=== PATIENT | male | born 1960 | race Caucasian/White ===

== ENCOUNTER 2024-08-05 08:50 | Emergency (ER) | payer OTHER, SELFPAY ==
[2024-08-05 08:55] VITALS: BP 139/90
[2024-08-05 10:10] VITALS: BP 146/110
[2024-08-05 10:15] VITALS: BMI 27.2
--- NOTE | 2024-08-05 10:20 | ED.GENMED ---
History of Present Illness
General
Chief Complaint: Heart Rate Problem
Source: patient
Exam Limitations: none
Time Seen by Provider: 08/05/24 10:09
History of Present Illness
History of Present Illness:
See MDM
Past History
Past History
ED Past Medical History: None
ED Past Surgical History: None
Social History
Tobacco: Smoker
Phy Exam
Physical Exam
Physical Exam:
See MDM
Scores
[id number] Score for Afib Stroke Risk
Age in Years (65=0, 65-74=1, >/=75=2): <65
Sex (Female=+1): Male
Congestive Heart Failure History (Yes=+1): No
Hypertension History (Yes=+1): Yes
Stroke/TIA/Thromboembolism History (Yes=+2): No
Vascular Disease History (Yes=+1): No
Diabetes Mellitus (Yes=+1): No
Score: 1
Anticoagulation Recommendations: Consider anticoagulation (as validated in nonvalvular fib)
Course
Orders/Labs/Results
Orders:
Orders
08/05/24 08:51
EKG [Electrocardiogram (*1)] Urgent
Reason for Study: Palpitations
EKG- Treatment ONCE
08/05/24 10:22
Complete Blood Count/With Diff Urgent
Comprehensive Metabolic Panel Urgent
Magnesium Urgent
TSH Reflex To Free T4 Urgent
08/05/24 10:43
Amlodipine [Norvasc] 10 mg PO ONCE ONE
Abnormal Lab Results
08/05/24
10:22
Absolute Monos (auto) 0.8 H 10^3/uL
(0.1-0.6)
Monocytes % 10.0 H %
(1.7-9.3)
Chloride 111 H mmol/L
(98-107)
Magnesium 2.4 H mg/dl
(1.6-2.3)
08/05/24 10:22
08/05/24 10:22
Vital Signs
Initial and Last Documented VS:
Initial Vital Signs
Temp Pulse Resp BP Pulse Ox
97.6 F 65 18 139/90 99
08/05/24 08:55 08/05/24 08:55 08/05/24 08:55 08/05/24 08:55 08/05/24 08:55
Last Documented Vital Signs
Temp Pulse Resp BP Pulse Ox
97.6 F 48 11 130/96 99
08/05/24 08:55 08/05/24 12:00 08/05/24 12:00 08/05/24 12:00 08/05/24 12:00
MDM/Problems Addressed
Differential Diagnosis Includes:
HPI and MDM Narrative:
63-year-old male presenting from PCP office for evaluation of palpitations and concern for new onset A-fib. Over the past several weeks, patient noted intermittent episodes where his heart rate was fast. He initially equated this to stress but he
has a home monitor device showing A-fib. Patient denies prior history of A-fib. On exam, he is well-appearing and nontoxic. Patient is sinus rhythm. On the monitor, heart rate goes as low as 51 bpm. 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
walker. He denies any chest pain or shortness of breath with exertion. Given that he has no exertional component, I have low suspicion for ACS. He has no ischemic changes on his EKG either. On the monitor, blood pressure 140s/90s. He denies
prior history of high blood pressure. Regardless, case curb sided with cardiology. We discussed treating him as [id number] score of 1. Will discuss risk versus benefit of Eliquis with patient. In regards to his baseline bradycardia, will avoid
beta-blockers. Will start amlodipine. Cardiology suggested propranolol if symptoms are persistent
Physical exam
General: Well appearing and non-toxic
HEENT: protecting airway
Neck: appears supple
CV: No evidence of cyanosis. Regular rate and rhythm
Resp: No accessory muscle use
Abd: Non-distended
Extremities: No deformities
Neuro: alert
Psych: Normal affect
Skin: Intact
Problems Addressed including Acute and Chronic Conditions affecting care:
1. New onset A-fib
Acuity: acute
Prognosis: stable
Details: Given baseline bradycardia, will start amlodipine
Updates
Case discussed with cardiology. The decision of Eliquis was discussed with patient. Given that he is still low risk, he will wait on starting Eliquis until speaking to cardiology in the outpatient setting. Patient understands risks of clot and
stroke
Blood work without clinically significant abnormalities. Patient feels comfortable going home and understands return precautions
Differential Diagnosis (but not limited to):
Testing considered:
Drug therapy (if applicable): OTC meds, please see d/c instruction regarding Rx drugs
Amount and/or Complexity of Data Reviewed
Clinical info obtained from: Patient
External data reviewed: N/A
Labs I independently reviewed (but not limited to): TSH normal
Radiology: N/A
Pulse Ox: not hypoxic
EKG independently reviewed: Sinus bradycardia
Tail Sawyer: Sinus rhythm, normal axis, right bundle branch block, no STEMI
Critical Care: N/A
Risk of Complication:
Social Determinants of health: Good social support
Discussed with other providers: General Assembler
Escalation of Care includes Admit/Obs: After being observed in the Emergency Department, pt stable for discharge.
Occasional wrong word or 'sound a like' substitutions may have occurred due to the inherent limitations of voice recognition software. Read the chart carefully and recognize, using context, where substitutions have occurred.
*Critical Care Note
Total Time (30-74mins, 75-104mins- exclusive of procedures): Not Applicable
ED Attending Note
-
Portions of this chart may have been created with voice recognition software.� Occasional wrong word or��sound alike� substitutions may have occurred due to the inherent limitations of voice recognition software.
Discharge Plan
Departure
Patient Disposition: Home (Routine Discharge)
Date of Disposition: 08/05/24
Time of Disposition: 12:32
Patient with high blood pressure during this ER visit?: No
Discharge Problem:
New onset a-fib
Instructions: Atrial Fibrillation (DC)
Prescriptions:
New
amlodipine 10 mg tablet
10 mg PO DAILY Qty: 30 0RF
No Action
Zithromax Tri-Anton
250 mg PO DAILY
Patient Comments:
day 3 of z-pac
cefuroxime axetil 500 MG tablet
500 mg PO BID Qty: 14 0RF
Referrals:
Jerry Sanz DO [Family Provider, Internal Medicine]
Pasquale Camargo MD [Active, Cardiology]
Activity Restrictions/Additional Instructions:
Please return for any worsening symptoms.
You may return at any time if you have further concerns.
Please follow up with your doctor at the first available appointment, preferably this week.
Please make an appointment to see the supreme court judge. As we discussed, we are starting you on a blood pressure medicine called amlodipine. This will have some effect on your heart rate as well. The supreme court judge suggested that your primary care
doctor placed you on a different medicine called propranolol if your symptoms are persistent or worse. We have to avoid certain medications that could lower your heart rate even more. Your resting heart rate is already on the low side.
Thank you for choosing [facility].
Interventions
Interventions:
*Risk Screen - Suicide Last Done: 08/05/24 08:55
*General Assessment Last Done: 08/05/24 10:15
*Neglect/Abuse Screening Last Done: 08/05/24 08:55
*ED- Fall Risk Assessment Last Done: 08/05/24 10:15
*ED COVID-19 Vaccine History Last Done: 08/05/24 08:55
ED- Cardiac Assessment Last Done: 08/05/24 10:15
ED- Pulmonary Assessment Last Done: 08/05/24 10:15
Discharge Date and Time
Print Language: FRENCH
[2024-08-05 10:37] LABS: % Basophils 0.8 % (0-2); % Eosinophils 1.5 % (0-6); % Immature Granulocytes 0.3 % (0-0.5); % Neutrophils 58.4 % (42.2-75.2); Absolute Basophils 0.1 10^3/uL (0-0.2); Absolute Eosinophils 0.1 10^3/uL (0-0.7); Absolute Lymphocytes 2.2 10^3/uL (1.2-3.4); Absolute Monocytes 0.8 10^3/uL (0.1-0.6); Absolute Neutrophils 4.4 10^3/uL (1.4-6.5); Hematocrit 44.3 % (39.0-52.0); Hemoglobin 15.3 g/dL (13.0-18.0); Mean Corp Hgb Conc. 34.5 g/dL (33.0-37.0); Mean Corpuscular Hgb 29.7 pg (27.0-31.0); Mean Corpuscular Volume 85.9 fL (80.0-94.0); Mean Platelet Volume 10.4 fL (7.4-10.4); Nucleated Red Blood Cells % 0 % (-); Platelet Count 238 10^3/uL (130-400); Red Blood Cell Count 5.16 10^6/uL (4.70-6.10); Red Cell Dist. Width 14.4 % (11.5-14.5); White Blood Cell Count 7.5 10^3/uL (4.8-10.8)
[2024-08-05 10:52] LABS: ALT (SGPT) 15 U/L (0-50); AST (SGOT) 20 U/L (17-59); Albumin 4.6 g/dl (3.5-5.0); Alkaline Phosphatase 55 U/L (38-126); Blood Urea Nitrogen 17 mg/dl (9-20); Calcium 9.6 mg/dl (8.4-10.2); Carbon Dioxide 24 mmol/L (22-30); Chloride 111 mmol/L (98-107); Estimated Creatinine Clearance 83 ml/min; Glucose 88 mg/dl (70-99); Magnesium 2.4 mg/dl (1.6-2.3); Potassium 4.8 mmol/L (3.5-5.1); Sodium 142 mmol/L (135-145); Total Bilirubin 0.7 mg/dl (0.2-1.3); Total Protein 7.2 g/dl (6.3-8.2); eGFR > 60.00
[2024-08-05] MEDS: NORVASC 10 MG PO (10:56)
[2024-08-05 11:00] VITALS: BP 133/95
[2024-08-05 11:20] LABS: TSH Reflex To Free T4 1.36 uIU/ml (0.47-4.68)
[2024-08-05 12:00] VITALS: BP 130/96
== END 2024-08-05 12:47 | disposition home or self-care (01) ==
LOC: EMR 08:50
PROVIDERS: EMERGENCY PHYSICIAN Student in an Organized Health Care Education/Training Program; FAMILY PHYSICIAN Internal Medicine
DX: I48.91 Unspecified atrial fibrillation (principal); F17.200 Nicotine dependence, unspecified, uncomplicated; R00.1 Bradycardia, unspecified
CPT/HCPCS: 99284; 80053; 83735; 84443; 85025; 93005

== ENCOUNTER → 2025-01-12 08:18 | Outpatient (REF) | payer OTHER, SELFPAY | LOC: RCS 08:18 | PROVIDERS: ATTENDING PHYSICIAN Nurse Practitioner Family | DX: I48.0 Paroxysmal atrial fibrillation (principal) | CPT/HCPCS: 93225; 93226; 93306 ==